=== PATIENT | female | born 1950 | race Caucasian/White ===

== ENCOUNTER → 2018-12-22 | Outpatient (CLI) | payer OTHER ==
[~2018-12-22] MED LIST: IOPAMIDOL (ISOVUE-300) 100 ML BTL ONE; IOPAMIDOL (ISOVUE-370) 150 ML BTL IV ONE
== END ==
LOC: FIMAGING 12:48
PROVIDERS: ATTEND Internal Medicine
DX: N13.0 Hydronephrosis with ureteropelvic junction obstruction (principal); Z87.440 Personal history of urinary (tract) infections
CPT/HCPCS: 74178; Q9967; 82565-PO